=== PATIENT | female | born 1930 | race Caucasian/White ===

== ENCOUNTER → 2018-09-10 | Outpatient (CLI) | payer MEDICARE, BC | END | disposition home or self-care (01) | LOC: PCVCCLINIC 09:00 | PROVIDERS: ATTEND Nuclear Medicine Nuclear Cardiology | DX: I73.9 Peripheral vascular disease, unspecified (principal); I48.91 Unspecified atrial fibrillation; I25.10 Atherosclerotic heart disease of native coronary artery without angina pectoris; M86.272 Subacute osteomyelitis, left ankle and foot; M06.9 Rheumatoid arthritis, unspecified; N18.9 Chronic kidney disease, unspecified; Z88.8 Allergy status to other drugs, medicaments and biological substances; Z79.899 Other long term (current) drug therapy; Z79.82 Long term (current) use of aspirin | CPT/HCPCS: G0463 ==

== ENCOUNTER → 2018-10-24 | Outpatient (CLI) | payer MEDICARE, BC ==
--- NOTE | 2018-10-24 11:04 | PCVCIMAG ---
EXAM: BILATERAL CAROTID DUPLEX INDICATION: Carotid Occlusive Disease. FINDINGS: Doppler Measurements (centimeters per second): RIGHT: Peak CCA-78, Peak ECA-98, Diastolic ICA-25, Peak ICA-115, ICA/CCA Ratio-1.5. LEFT: Peak CCA-85, Peak ECA-154, Diastolic ICA-23, Peak ICA-105, ICA/CCA Ratio-1.2. RIGHT CAROTID: The carotid bulb has moderate plaque. The proximal internal carotid artery shows <40% stenosis. The common carotid artery shows no significant stenosis. The external carotid artery shows no significant stenosis. LEFT CAROTID: The carotid bulb has moderate plaque. The proximal internal carotid artery shows <40% stenosis. The common carotid artery shows no significant stenosis. The external carotid artery shows no significant stenosis. Antegrade flow in both vertebral arteries. IMPRESSION: <40% stenosis of the right internal carotid artery with moderate plaque. <40% stenosis of the left internal carotid artery with moderate plaque. LOC:[place] [id number]
--- NOTE | 2018-10-24 11:44 | PCVCIMAG ---
EXAM: LEFT LOWER EXTREMITY ARTERIAL DUPLEX INDICATION: Peripheral Arterial Disease. Leg pain. FINDINGS: Left Leg: Common femoral and profunda femoral arteries are patent. Superficial femoral artery and popliteal artery are patent. Prior left tibioperoneal trunk stent remains patent. 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 IMPRESSION: Prior left tibioperoneal trunk stent remains patent. 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 LOC:[id number]
== END | disposition home or self-care (01) ==
LOC: PCVCIMAG 09:55
PROVIDERS: ATTEND Nuclear Medicine Nuclear Cardiology
DX: I65.23 Occlusion and stenosis of bilateral carotid arteries (principal); I70.292 Other atherosclerosis of native arteries of extremities, left leg
CPT/HCPCS: 93880; 93926; G0463